=== PATIENT | male | born 1955 | race Caucasian/White ===

== ENCOUNTER 2023-11-05 16:28 | Emergency (ER) | payer MEDICARE ==
[~2023-11-05] VITALS: Ht 182.9 cm; Wt 115.0 kg
[2023-11-05 18:25] LABS: CHLORIDE 105 mEq/L (98-107); POTASSIUM 4.4 mEq/L (3.5-5.1); SODIUM 138 mEq/L (136-145)
[2023-11-05 18:26] LABS: BASOPHILS % 2.4 % (0.0-2.0); CALCIUM 9.5 mg/dL (8.7-10.4); CARBON DIOXIDE 28 mEq/L (21-32); EOSINOPHILS % 11.4 % (0.0-5.0); HEMATOCRIT. 45.9 % (42.0-52.0); HEMOGLOBIN. 15.6 g/dL (14.0-18.0); LYMPHOCYTES % 28.9 % (20.0-50.0); MEAN CORPUSCULAR HEMOGLOBIN 31.3 pg (28.0-32.0); MEAN CORPUSCULAR HGB CONC 33.9 g/dL (31.0-37.0); MEAN CORPUSCULAR VOLUME 92.1 fL (80.0-94.0); MEAN PLATELET VOLUME 8.7 fl (7.4-10.4); MONOCYTES % 4.8 % (2.0-8.0); NEUTROPHILS % 52.5 % (40.0-76.0); PLATELET 201 x1000/uL (130-400); RED BLOOD CELL COUNT 4.98 mill/uL (4.7-6.1); RED CELL DISTRIBUTION WIDTH 14.5 % (11.6-14.6); WHITE BLOOD COUNT 6.4 x1000/uL (4.5-11.0)
[2023-11-05 18:31] LABS: CREATININE 1.4 mg/dL (0.6-1.3); GLUCOSE 113 mg/dL (70-105); UREA NITROGEN BLOOD 16 mg/dL (9-23)
[2023-11-05 18:32] LABS: TROPONIN I HIGH SENSITIVITY 5 ng/L (3.0-53)
[2023-11-05] MEDS: METHYLPREDNISOLONE SOD SUCC 125MG/2ML (ACT-O-VIAL) IV STA (18:33)
[2023-11-05 18:34] LABS: PROTHROMBIN TIME 10.7 sec (9.6-11.0)
[2023-11-05] MEDS: IPRATROPIUM BROMIDE (0.02%) 0.5MG/2.5ML NEB HHN STA (18:39)
[2023-11-05] MEDS: ALBUTEROL (0.083%) 2.5MG/3ML NEB HHN STA (18:39)
[2023-11-05 19:26] VITALS: PULSE 94; RESP 20; O2SAT 98
[2023-11-05 20:42] LABS: TROPONIN I HIGH SENSITIVITY 10 ng/L (3.0-53)
[2023-11-05 21:15] VITALS: BP 135/93; PULSE 94; RESP 20; TEMP 98.1
[2023-11-05] MEDS ORDERED: ALBU6.7H15 INH (21:18)
[2023-11-05] MEDS ORDERED: P20 MT (21:18)
[2023-11-05] MEDS ORDERED: LEVO750T68 MT (21:19)
== END 2023-11-05 21:35 | disposition left against medical advice (07) ==
LOC: ER 16:28
DX: J45.909 Unspecified asthma, uncomplicated (principal); I10 Essential (primary) hypertension; F15.10 Other stimulant abuse, uncomplicated; Z87.891 Personal history of nicotine dependence
CPT/HCPCS: 80048; 83880; 85025; 85610; 86850; 86900; 86901; 84484; 36415; 71045; 94644; 96374; 99291; J2930; 94640